=== PATIENT | female | born 1980 | race African-American/Black ===

== ENCOUNTER → 2016-08-29 | Outpatient (CLI) | payer OTHER ==
[~2016-08-29] MED LIST: GADODIAMIDE PF 287 MG/ML 10 ML VIAL (for RAD MRI) IV ONE; OMEP20CA5 PO; PRIN20TA2 PO
--- NOTE | 2016-08-29 17:20 | RADRPT ---
EXAM DATE/TIME: 08/29/2016 13:44 [place] COMPARISON: No previous studies available for comparison. INDICATIONS : Renal artery stenosis. Hypertension. CONTRAST: 30 cc Omniscan (gadodiamide) IV MEDICAL HISTORY : Hypertension. SURGICAL HISTORY : section. ENCOUNTER: Initial ACUITY: 1 day PAIN SCORE: 0/10 LOCATION: abdomen. TECHNIQUE: Bolus infused MR angiography was performed. The data was postprocessed with a variety of visualizati on algorithms including full-volume maximum-intensity projection, multiplanar sliding thin slab refor mation, and curved planar reformation. FINDINGS: ABDOMINAL AORTA: The lumen is smooth without significant narrowing or aneurysmal dilatation. The proximal celiac and s uperior mesenteric arteries are patent with some inferior displacement of the central portion of the celiac possibly representing some extrinsic impingement from the median arcuate ligament of the diaph ragm. RENAL ARTERIES: There are solitary renal arteries bilaterally. No evidence of ostial or segmental stenosis. KIDNEYS: There is symmetric renal size. There is homogeneous enhancement in the parenchyma. BIFURCATION: Normal. RIGHT PELVIS: The right common iliac, internal iliac, and external iliac vessels are patent without luminal irregul arity. LEFT PELVIS: The left common iliac, internal iliac, and external iliac vessels are patent and without luminal irre gularity. RETROPERITONEUM: The adrenal glands are unremarkable. No adenopathy seen. CONCLUSION: Negative exam. Single bilateral renal arteries are patent. Kidneys are symmetric in size and con figuration. Robbie Simms MD on August 29, 2016 at 17:15 Board Certified Radiologist. This report was verified electronically.
== END ==
LOC: HRAD 12:51
PROVIDERS: ATTEND Pediatrics
DX: I70.1 Atherosclerosis of renal artery (principal)
CPT/HCPCS: A9579; C8900